=== PATIENT | female | born 1950 | race Caucasian/White ===

== ENCOUNTER 2018-10-28 14:55 | Observation (INO) ==
[2018-10-28] MEDS ORDERED: 0.9 % Sodium Chloride 1,000 ML IVC ONE (14:59)
[2018-10-28] MEDS ORDERED: Ondansetron 4 MG/2 ML VIAL IVP ONE (14:59)
--- NOTE | 2018-10-28 15:01 | Emergency Department Note ---
Disposition Clinical Impression: Abdominal pain, vomiting, and diarrhea Syncope Qualifiers: Syncope type: unspecified Qualified Code(s): R55 - Syncope and collapse Disposition: Admitted As Inpatient Condition: Fair Referrals: Willam Virk MD [Primary Care Provider] - Forms: ED Satisfaction Letter Time of Disposition: 16:03 Nausea/Vomiting/Diarrhea HPI - General Chief complaint: ED Nausea/Vomiting/Diarrhea Stated complaint: vomiting and diarrhea, abd pain Time Seen by Provider: 10/28/18 14:58 Source: patient, EMS Mode of arrival: EMS Limitations: no limitations Nursing Notes Reviewed: Yes Vital Signs Reviewed: Yes - History of Present Illness HPI Narrative: Patient reports onset of chills and about 10 AM followed by frequent watery diarrhea and nausea with vomiting. She states diarrhea is been without blood or mucus has been frequent. She states she has vomited at least 10 times with a bitter bile. Patient's felt dizzy and states she did pass out without injury. She ultimately called the squad and they found her to be somewhat, persistently vomiting, having diarrhea and a blood pressure of 80 systolic. IV was established, fluid bolus initiated and she is been transported in for evaluation. She arrives here alert and appropriate ill appearing. She reports no ill exposures, foodborne illness concerns, recent travel or antibiotics. She states her abdomen feels tight and sore and believes this is from her vomiting and diarrhea. She denies any other localizing abdominal pains. She reports a previous cholecystectomy, appendectomy and an ulcer surgery. She denies any other ongoing abdominal troubles. She states her back feels sore. She has a urinary frequency, dysuria or blood. She denies chest pain, palpitation or shor tness of breath. She denies cough. She denies any lower extremity complaints. EMS reported that her nausea seemed to do a little better after they had an diffuse about 300 mL of normal saline. EKG was performed and transmitted at 2:45 PM. This shows a normal sinus rhythm with a rate of 90, axis of 18, RI interval of 160 and a QT/QTc is 376/428. Patient has some nonspecific lateral T-wave inversion present consistent with possible LVH. This is on my interpretation. Pt Subjective Complaint: nausea, vomiting, diarrhea, abdominal pain Onset (ago): hour(s) (5) Description of emesis: food contents, watery, bilious Number of episodes of emesis: 10 Description of Diarrhea: water Associated Abdominal Pain: Yes ("Sore from vomiting") If pain, Location of pain: diffuse Severity: moderate Quality: cramping, aching Consistency: intermittent Improves with: nothing Worsens with: vomiting Associated symptoms: Reports: fever/chills, loss of appetite, malaise, nausea/vomiting, syncope, weakness. Denies: myalgias, chest pain, cough, diaphoresis, headaches, rash, dysuria, shortness of breath - Related Data Home Medications Medication Instructions Recorded Confirmed amLODIPine [Norvasc] 10 mg PO DAILY 03/22/16 03/22/16 Previous Rx's Medication Instructions Recorded Hydrocodone/Acetaminophen [[place] 0.5 - 1 tab PO Q6H PRN #16 tab 03/22/16 5-325 Tablet] Promethazine/Dextromethorphan 5 ml PO Q6HR PRN #60 ml 05/28/18 [Promethazine-Dm Syrup] Allergies Allergy/AdvReac Type Severity Reaction Status Date / Time No Known Allergies Allergy Verified 10/28/18 14:58 All systems ED: reviewed and negative except as stated. Past Medical History - Past Medical History Attestation: Yes The following information was validated with the patient. Source: patient, nursing notes reviewed Medical history: Reports: hypertension, other Surgical history: Reports: appendectomy, cholecystectomy, other ("Ulcer surgery") Psychiatric history: Reports: anxiety - Social History Smoking Status: Current every day smoker Smokeless Tobacco Status: No Alcohol use: Reports: occasionally Drug use: Reports: none Physical Exam - General Limitations: no limitations General appearance: alert, anxious - Head Head exam: atraumatic, normocephalic, normal inspection - Eye Eye exam: Present: normal appearance, PERRL, EOMI. Absent: scleral icterus, conjunctival injection - ENT ENT exam: normal exam, normal oropharynx, mucous membranes moist - Neck Neck exam: Present: normal inspection, full ROM, trachea midline - Chest Chest inspection: Present: normal inspection, symmetric chest wall rise - Respiratory Respiratory exam: Present: normal lung sounds bilaterally. Absent: respiratory distress, wheezes, prolonged expiratory phase - Cardiovascular Cardiovascular exam: Present: regular rate, normal rhythm, normal heart sounds. Absent: tachycardia - Abdominal Exam Abdominal exam: Present: soft, hyperactive bowel sounds. Absent: distention, guarding, rebound, rigidity, Colbert's sign, mass, hernia Abdominal tenderness: Present: diffuse, mild, moderate - Extremities Exam Extremities exam: Present: normal inspection, full ROM, normal capillary refill. Absent: tenderness, pedal edema - Expanded Lower Extremity Exam Neurovascular/Tendon exam: Present: normal capillary refill. Absent: motor deficit, sensory deficit, tendon deficit Gait: not tested/not observed - Back Exam Back exam: Present: normal inspection, full ROM. Absent: tenderness, CVA tenderness (R), CVA tenderness (L) - Neurological Exam Neurological exam: Present: alert, oriented X3 - Psychiatric Psychiatric exam: Present: normal affect, anxious - Skin Skin exam: Present: warm, dry, intact, pallor Course Course Narrative: 1600: Patient's presentation and testing have been discussed with the patient, family and Dr. Solo. All concerned her in agreement with observation on monitoring for continued hydration and antiemetics. She is feeling improved. She currently has a systolic blood pressure of 99, heart rate of 90. She has gets skin turgor. She has clear respirations and no focal tenderness on all related to her abdomen. Believe her lactic acidosis is secondary to intractable vomiting and diarrhea and not from other septic cause. I discussed any ant ibiotic coverage and Dr. Solo feels comfortable going without. He will assess the patient on the hospital floor and coordinate further care. Verbal orders have been obtained for her observation. Vital Signs Temperature 98.1 F 10/28/18 15:11 Pulse Rate 86 10/28/18 15:11 Respiratory Rate 18 10/28/18 15:11 Blood Pressure 98/65 10/28/18 15:11 O2 Sat by Pulse Oximetry 99 10/28/18 15:11 Temperature 98.1 F 10/28/18 15:11 Pulse Rate 86 10/28/18 15:11 Respiratory Rate 18 10/28/18 15:11 Blood Pressure 98/65 10/28/18 15:11 O2 Sat by Pulse Oximetry 99 10/28/18 15:11 Oxygen Delivery Oxygen Delivery Room Air Nausea/Vomiting/Diarrhea - Differential Diagnosis Likely: food poisoning, gastroenteritis, dehydration - Medical Records Medical records reviewed: Yes I reviewed the patient's medical records. - Lab Data Lab results reviewed: Yes I reviewed the patient's lab results. Result diagrams: 10/28/18 15:09 10/28/18 15:09 Lab Results 10/28/18 10/28/18 10/28/18 Range/Units 15:09 15:09 15:09 WBC 12.6 H (4.3-11.1) K/mcL RBC 4.95 (3.82-4.97) M/mcL Hgb 14.8 (11.5-15.4) g/dL Hct 44.2 (35.3-44.9) % MCV 89.3 (83.0-100.0) fL MCH 29.9 (28.0-33.3) pg MCHC 33.5 (31.6-35.5) g/dL RDW 13.6 (11.5-14.5) % Plt Count 397 (140-400) K/mcL MPV 9.8 (9.4-12.4) fL Immature Gran % 0.6 (0-4) % Seg Neutrophils % 86.8 % Lymphocytes % 8.6 % Monocytes % 3.2 % Eosinophils % 0.1 % Basophils % 0.7 % Neutrophils # 10.9 H (1.6-8.9) K/mcL Lymphocytes # 1.1 (0.6-4.6) K/mcL Monocytes # 0.4 (0.0-1.3) K/mcL Eosinophils # 0.0 (0.0-0.6) K/mcL Basophils # 0.1 (0.0-0.2) K/mcL Sodium 140 (136-145) mEq/L Potassium 3.1 L (3.5-5.1) mEq/L Chloride 102 (98-107) mEq/L Carbon Dioxide 23 (23-29) mEq/L BUN 18 (8-23) mg/dL Creatinine 1.39 H (0.60-1.20) mg/dL Est GFR ( Amer) 46 L (> 60) Est GFR (Non-Af Amer) 38 L (> 60) BUN/Creatinine Ratio 13 (6-26) Glucose 147 H (70-105) mg/dL Calculated Osmolality 295 (280-300) Lactic Acid (0.5-2.2) mmol/L Calcium 9.4 (8.6-10.3) mg/dL Total Bilirubin 0.2 L (0.3-1.0) mg/dL Direct Bilirubin 0.0 (0.0-0.2) mg/dL Indirect Bilirubin 0.2 (0.0-1.2) mg/dL AST 23 (13-39) Units/L ALT 16 (7-52) Units/L Alkaline Phosphatase 97 (34-104) Units/L Troponin I (< 0.04) ng/mL Serum Total Protein 8.1 (6.4-8.9) g/dL Albumin 4.7 (3.5-5.7) g/dL Globulin 3.4 (2.4-3.5) g/dL Albumin/Globulin Ratio 1.4 (1.1-2.2) Amylase 56 (29-103) Units/L Lipase 40 (11-82) Units/L 10/28/18 10/28/18 Range/Units 15:09 15:09 WBC (4.3-11.1) K/mcL RBC (3.82-4.97) M/mcL Hgb (11.5-15.4) g/dL Hct (35.3-44.9) % MCV (83.0-100.0) fL MCH (28.0-33.3) pg MCHC (31.6-35.5) g/dL RDW (11.5-14.5) % Plt Count (140-400) K/mcL MPV (9.4-12.4) fL Immature Gran % (0-4) % Seg Neutrophils % % Lymphocytes % % Monocytes % % Eosinophils % % Basophils % % Neutrophils # (1.6-8.9) K/mcL Lymphocytes # (0.6-4.6) K/mcL Monocytes # (0.0-1.3) K/mcL Eosinophils # (0.0-0.6) K/mcL Basophils # (0.0-0.2) K/mcL Sodium (136-145) mEq/L Potassium (3.5-5.1) mEq/L Chloride (98-107) mEq/L Carbon Dioxide (23-29) mEq/L BUN (8-23) mg/dL Creatinine (0.60-1.20) mg/dL Est GFR ( Amer) (> 60) Est GFR (Non-Af Amer) (> 60) BUN/Creatinine Ratio (6-26) Glucose (70-105) mg/dL Calculated Osmolality (280-300) Lactic Acid 2.8 H (0.5-2.2) mmol/L Calcium (8.6-10.3) mg/dL Total Bilirubin (0.3-1.0) mg/dL Direct Bilirubin (0.0-0.2) mg/dL Indirect Bilirubin (0.0-1.2) mg/dL AST (13-39) Units/L ALT (7-52) Units/L Alkaline Phosphatase (34-104) Units/L Troponin I < 0.03 (< 0.04) ng/mL Serum Total Protein (6.4-8.9) g/dL Albumin (3.5-5.7) g/dL Globulin (2.4-3.5) g/dL Albumin/Globulin Ratio (1.1-2.2) Amylase (29-103) Units/L Lipase (11-82) Units/L - Radiology Data Radiology results reviewed: Yes I reviewed the patient's radiology results. CT is performed of the abdomen and pelvis without IV or oral contrast. This shows the basal lungs be free of infiltrate, effusion or mass. The liver, spleen and pancreas appear normal. Kidneys are without stone or obstruction. Bowel is liquid filled in the small and large bowel. She does have diverticular disease in the sigmoid colon without diverticulitis. I do not see evidence for obstruction, acute inflammatory change or perforation. Abdominal wall appears to have an area of fat-containing left inguinal hernia without evidence for bowel hernia or entrapment. No other acute abnormality is seen. This is on my interpretation. Impressions Abdomen/Pelvis CT 10/28/18 14:59 IMPRESSION: 1. No acute abnormalities seen in the abdomen or pelvis 2. Status post cholecystectomy 3. Colonic diverticulosis without evidence for diverticulitis 4. Mild distention of the cecum which is fluid-filled. This may be related to diarrhea. No focal bowel wall thickening. 5. The appendix is not visualized but no secondary signs of appendicitis 6. No obstructive uropathy 7. Fat containing left inguinal hernia D/ / Keith Lawrence MD / Keith Lawrence MD Interpreting Provider: Keith Lawrence MD - EKG Data EKG attestation: Yes I reviewed and interpreted this EKG. EKG shows normal: sinus rhythm, axis, intervals, QRS complexes, ST-T waves Rate: normal T wave inversions noted in: v4, v5, v6 Interpretation: nonspecific ST-T wave changes, LVH (With lateral strain)
[2018-10-28 15:19] LABS: Basophils # 0.1 K/mcL (0.0-0.2); Basophils % 0.7 %; Eosinophils % 0.1 %; Hematocrit 44.2 % (35.3-44.9); Hemoglobin 14.8 g/dL (11.5-15.4); Immature Granulocytes % 0.6 % (0-4); Lymphocytes # 1.1 K/mcL (0.6-4.6); Lymphocytes % 8.6 %; Mean Corpuscular HGB Conc 33.5 g/dL (31.6-35.5); Mean Corpuscular Hemoglobin 29.9 pg (28.0-33.3); Mean Corpuscular Volume 89.3 fL (83.0-100.0); Mean Platelet Volume 9.8 fL (9.4-12.4); Monocytes # 0.4 K/mcL (0.0-1.3); Monocytes % 3.2 %; Neutrophils # 10.9 K/mcL (1.6-8.9); Platelet Count 397 K/mcL (140-400); Red Blood Count 4.95 M/mcL (3.82-4.97); Red Cell Distribution Width 13.6 % (11.5-14.5); Segmented Neutrophils % 86.8 %; White Blood Count 12.6 K/mcL (4.3-11.1)
[2018-10-28 15:39] LABS: Calcium 9.4 mg/dL (8.6-10.3); Potassium 3.1 mEq/L (3.5-5.1)
[2018-10-28 15:40] LABS: Albumin 4.7 g/dL (3.5-5.7); Albumin/Globulin Ratio 1.4 (1.1-2.2); Bilirubin,Indirect 0.2 mg/dL (0.0-1.2); Bilirubin,Total 0.2 mg/dL (0.3-1.0); Globulin 3.4 g/dL (2.4-3.5); Total Protein 8.1 g/dL (6.4-8.9)
[2018-10-28] MEDS ORDERED: Ondansetron 4 MG/2 ML VIAL IVP PRN (16:05)
[2018-10-28] MEDS ORDERED: Mag Hydrox/Al Hydrox/Simeth 30 ML UDC PO PRN (16:05)
[2018-10-28] MEDS ORDERED: Naloxone 0.4 MG/ML INJ IVP PRN (16:05)
[2018-10-28] MEDS ORDERED: 0.9 % Sodium Chloride 1,000 ML ONE (16:44)
[2018-10-28] MEDS: 0.9 % Sodium Chloride 1,000 ML IVC SCH (17:40)
[2018-10-28 20:16] LABS: Bilirubin,Urine Negative (Negative); Blood,Urine Trace-intact (Negative); Clarity,Urine Clear (Clear); Color,Urine Yellow (Yellow); Glucose,Urine (UA) Normal (Normal); Ketones,Urine Negative (Negative); Leukocyte Esterase,Urine Negative (Negative); Nitrite,Urine Negative (Negative); PH,Urine 5.5 pH Units (5.0-8.0); Protein,Urine Negative (Neg-Trace); Urobilinogen,Urine Normal (Normal)
[2018-10-28 20:30] LABS: Granular Casts,Urine Few per lpf (None Seen); Hyaline Casts,Urine Few per lpf (None-Few); Squamous Epithelial Cell,Urine Few per lpf (None-Few)
[2018-10-28 20:31] LABS: Bacteria,Urine Moderate per hpf (None-Few); Mucus,Urine Moderate (Few); RBC,Urine 0-3 per hpf (0-3); WBC,Urine 0-3 per hpf (0-3)
[2018-10-28] MEDS: Acetaminophen 325 MG TABLET PO PRN (20:49)
[2018-10-28] MEDS ORDERED: clonazePAM 1 MG TABLET PO PRN (20:57)
[2018-10-28] MEDS: Nicotine 14 MG PATCH.TD24 TD SCH (22:00)
[2018-10-28] MEDS: clonazePAM 0.5 MG TABLET PO PRN (22:01)
[2018-10-29] MEDS: 0.9 % Sodium Chloride 1,000 ML IVC SCH ×3 (02:46→11:10)
[2018-10-29] MEDS: Acetaminophen 325 MG TABLET PO PRN ×2 (02:49→08:32)
[2018-10-29 07:44] LABS: BUN/Creatinine Ratio 23 (6-26); Blood Urea Nitrogen 14 mg/dL (8-23); Calcium 7.4 mg/dL (8.6-10.3); Carbon Dioxide 22 mEq/L (23-29); Chloride 113 mEq/L (98-107); Glucose 82 mg/dL (70-105); Osmolality,Calculated 292 (280-300); Potassium 3.2 mEq/L (3.5-5.1); Sodium 141 mEq/L (136-145); eGFR For African Americans > 60 (> 60); eGFR For Non-African Americans > 60 (> 60)
[2018-10-29] MEDS: clonazePAM 0.5 MG TABLET PO PRN ×2 (08:32→17:33)
[2018-10-29] MEDS ORDERED: amLODIPine 5 MG TABLET PO SCH (09:00)
[2018-10-29] MEDS ORDERED: Ondansetron 4 MG/2 ML VIAL IVP PRN (11:48)
[2018-10-29] MEDS: Acetaminophen/Butalbital/CaffeineTABLET PO PRN ×2 (11:50→17:33)
--- NOTE | 2018-10-29 11:54 | Internal Med History&Physical ---
Date of Encounter: 10/29/18 Time of Encounter: 11:10 Assessment and Plan (1) Acute gastroenteritis Current visit: Yes Status: Acute IV fluids and anti-emetics will be ordered. (2) Hypokalemia Current visit: Yes Status: Acute Likely secondary to vomiting and diarrhea. Supplemental potassium will be given. (3) Hypertension Current visit: Yes Status: Chronic Continue amlodipine. Qualifiers: Hypertension type: essential hypertension Qualified Code(s): I10 - Essential (primary) hypertension (4) Low vitamin D level Current visit: Yes Status: Acute Vitamin D level will be checked. (5) Depression Current visit: Yes Status: Chronic Continue clonazepam. Qualifiers: Depression Type: unspecified Qualified Code(s): F32.9 - Major depressive disorder, single episode, unspecified Internal Medicine - H&P: HPI Chief complaint: Vomiting and diarrhea Admitted From: Emergency Dept Plans for Post Hospital Care: Home History of present illness: Ms. Soler is a 67 year old female who came to emergency room stating she had onset of nausea vomiting and diarrhea approximately 10 AM the day of admission with multiple episodes of nonbloody vomiting and diarrhea. There was no significant abdominal pain, fevers, or chills. She denies any family members or contacts with similar symptoms. She became progressively weaker so came to emergency room for evaluation. She was admitted to [facility] floor for ongoing care needs. She states she has not vomited in over 12 hours but reports diarrhea still present. She denies previous similar episodes. GI history is pertinent for cholecystectomy in the 1980s. She had bleeding peptic ulcer disease with p artial gastrectomy and duodenal resection in 2013. Past Med Surg Social Fam HX - Past Medical History Medical history: hypertension, other Additional medical history: hx perforated ulcer Psychiatric history: anxiety, depression - Past Surgical History Surgical History: appendectomy, cholecystectomy, other ("Ulcer surgery") Additional surgical history: abd sx for perforated stomach ulcer - Social History Smoking Status: Current every day smoker Smokeless Tobacco Status: No Alcohol use: none, occasionally Drug use: none Internal Medicine - H&P: Meds amLODIPine [Norvasc] 10 mg PO DAILY 03/22/16 [History] Klonopin 1 mg PO TID 10/28/18 [History] Allergy/AdvReac Type Severity Reaction Status Date / Time shellfish derived Allergy Vomiting Verified 10/28/18 17:10 All Systems PM: A 10-system review of systems was performed and is negative for pertinent findings except as documented above in the HPI. Review of systems: Gen.: She states her weight has been stable for several months Cardiovascular: She has history of hypertension but denies CO heart failure angina DVT or pulmonary embolus Respiratory: She smoked intermittently since age 32 up to one pack per day. She reports PFTs approximately 2013 did not show significant lung disease. She does not use home oxygen. GI: As per history of present illness : She denies hematuria dysuria or kidney stones Neurologic: She has history of migraine headaches. She denies large distribution strokes or seizures. Endocrine: She denies diabetes thyroid disease or hyperlipidemia Hematology/oncology: She denies blood disorders cancers or anemia Psychiatric: She has depression or anxiety or other mental health issues. [place] skeletal: She denies arthritis gout or other bone joint or muscle disorders. She had vitamin D level of 7 mg/mL 06/13/2018. - Constitutional Vitals: Temp Pulse Resp BP Pulse Ox 97.6 F 68 17 130/74 95 10/29/18 10:58 10/29/18 10:58 10/29/18 10:58 10/29/18 10:58 10/29/18 10:58 Exam: Gen.: She is a well-developed well-nourished female resting comfortably in bed who appears in no severe distress HEENT: Head is atraumatic and normocephalic. Eyes: EOMI. There is no scleral icterus. Mouth: Mucosa is moist. Neck: Supple and nontender. There is no thyromegaly or adenopathy noted. Heart: Regular without murmurs gallops or ectopics Lungs: No wheezes or crackles are heard. Abdomen: Soft and nontender. Bowel sounds are present. No masses or guarding are noted. Extremities: She is wearing ANGÉLICA hose bilaterally which I did not remove. There is no pitting edema palpated through the ANGÉLICA hose. She has minimal DJD changes of her hands. Neurologic: Mental status: She is talkative and a good historian. Cranial nerves: Smile is symmetric. Forehead wrinkles bilaterally. Tongue protrudes midline. EOMI. Motor: There is no pronator drift. Cerebellar: Finger to nose is intact bilaterally. Skin: Warm and dry Internal Med - H&P Results - Labs CBC & Chem 7: 10/28/18 15:09 10/29/18 06:10 Labs: Short CBC 10/28/18 Range/Units 15:09 WBC 12.6 H (4.3-11.1) K/mcL Hgb 14.8 (11.5-15.4) g/dL Hct 44.2 (35.3-44.9) % Plt Count 397 (140-400) K/mcL Neutrophils # 10.9 H (1.6-8.9) K/mcL BMP 10/28/18 10/29/18 15:09 06:10 Sodium 140 141 Potassium 3.1 L 3.2 L Chloride 102 113 H Carbon Dioxide 23 22 L BUN 18 14 Creatinine 1.39 H 0.61 Glucose 147 H 82 Calcium 9.4 7.4 L Cardiac Enzymes 10/28/18 Range/Units 15:09 Troponin I < 0.03 (< 0.04) ng/mL Liver Function 10/28/18 Range/Units 15:09 Total Bilirubin 0.2 L (0.3-1.0) mg/dL Direct Bilirubin 0.0 (0.0-0.2) mg/dL AST 23 (13-39) Units/L ALT 16 (7-52) Units/L Alkaline Phosphatase 97 (34-104) Units/L Albumin 4.7 (3.5-5.7) g/dL Urine 10/28/18 Range/Units 20:00 Urine Color Yellow (Yellow) Urine Clarity Clear (Clear) Urine pH 5.5 (5.0-8.0) pH Units Ur Specific [place] 1.020 (1.010-1.025) Urine Protein Negative (Neg-Trace) mg/dL Urine Glucose (UA) Normal (Normal) mg/dL - Impressions ITS Impressions Abdomen/Pelvis CT 10/28/18 14:59 IMPRESSION: 1. No acute abnormalities seen in the abdomen or pelvis 2. Status post cholecystectomy 3. Colonic diverticulosis without evidence for diverticulitis 4. Mild distention of the cecum which is fluid-filled. This may be related to diarrhea. No focal bowel wall thickening. 5. The appendix is not visualized but no secondary signs of appendicitis 6. No obstructive uropathy 7. Fat containing left inguinal hernia D/ / Keith Lawrence MD / Keith Lawrence MD Interpreting Provider: Keith Lawrence MD
[2018-10-29] MEDS: *HR* Enoxaparin 40 MG/0.4 ML SYRINGE SQ SCH (12:37)
[2018-10-29] MEDS: 0.45 % Sodium Chloride w/KCl 20 MEQ/1,000 ML MLS IVC SCH (12:39)
--- NOTE | 2018-10-29 13:38 | Electrocardiograph Report ---
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
[2018-10-29 19:29] LABS: Adenovirus F 40/41 PCR Not detected (Not detect); Astrovirus PCR Not detected (Not detect); C.difficile Toxin A/B Gene PCR Not detected (Not detect); Campylobacter by PCR Not detected (Not detect); Cryptosporidium by PCR Not detected (Not detect); Cyclospora cayetanensis PCR Not detected (Not detect); E. coli O157 by PCR Not detected (Not detect); Entamoeba histolytica PCR Not detected (Not detect); Enteroaggregative E.coli(EAEC) Not detected (Not detect); Enteropathogenic E.coli(EPEC) Not detected (Not detect); Enterotoxigenic E.coli (ETEC) Not detected (Not detect); Giardia lamblia PCR Not detected (Not detect); Norovirus GI/GII PCR DETECTED (Not detect); Plesiomonas shigelloides PCR Not detected (Not detect); Rotavirus A PCR Not detected (Not detect); Salmonella PCR Not detected (Not detect); Sapovirus PCR Not detected (Not detect); Shig/EnteroinvasiveE coli EIEC Not detected (Not detect); Shigalike tox-prod E coli STEC Not detected (Not detect); Vibrio PCR Not detected (Not detect); Vibrio cholerae PCR Not detected (Not detect); Yersinia enterocolitica PCR Not detected (Not detect)
[2018-10-29] MEDS: Nicotine 14 MG PATCH.TD24 TD SCH (20:32)
[2018-10-30] MEDS: Acetaminophen/Butalbital/CaffeineTABLET PO PRN ×2 (01:07→08:57)
[2018-10-30] MEDS: 0.45 % Sodium Chloride w/KCl 20 MEQ/1,000 ML MLS IVC SCH (02:52)
[2018-10-30] MEDS: clonazePAM 0.5 MG TABLET PO PRN (03:53)
[2018-10-30 06:13] LABS: Basophils % 0.7 %; Hematocrit 33.2 % (35.3-44.9); Hemoglobin 11.2 g/dL (11.5-15.4); Immature Granulocytes % 0.2 % (0-4); Lymphocytes # 1.2 K/mcL (0.6-4.6); Lymphocytes % 30.7 %; Mean Corpuscular HGB Conc 33.7 g/dL (31.6-35.5); Mean Corpuscular Hemoglobin 29.7 pg (28.0-33.3); Mean Corpuscular Volume 88.1 fL (83.0-100.0); Mean Platelet Volume 9.6 fL (9.4-12.4); Monocytes # 0.4 K/mcL (0.0-1.3); Monocytes % 10.6 %; Neutrophils # 2.3 K/mcL (1.6-8.9); Platelet Count 237 K/mcL (140-400); Red Blood Count 3.77 M/mcL (3.82-4.97); Red Cell Distribution Width 13.8 % (11.5-14.5); Segmented Neutrophils % 57.8 %
[2018-10-30] MEDS: *HR* Enoxaparin 40 MG/0.4 ML SYRINGE SQ SCH (06:22)
[2018-10-30 06:36] LABS: Alanine Aminotransferase 19 Units/L (7-52); Albumin 3.5 g/dL (3.5-5.7); Albumin/Globulin Ratio 1.3 (1.1-2.2); Alkaline Phosphatase 69 Units/L (34-104); Aspartate Amino Transferase 26 Units/L (13-39); BUN/Creatinine Ratio 9 (6-26); Blood Urea Nitrogen 5 mg/dL (8-23); Calcium 8.6 mg/dL (8.6-10.3); Carbon Dioxide 26 mEq/L (23-29); Chloride 108 mEq/L (98-107); Globulin 2.7 g/dL (2.4-3.5); Glucose 91 mg/dL (70-105); Osmolality,Calculated 287 (280-300); Potassium 3.6 mEq/L (3.5-5.1); Sodium 140 mEq/L (136-145); Total Protein 6.2 g/dL (6.4-8.9); eGFR For African Americans > 60 (> 60); eGFR For Non-African Americans > 60 (> 60)
[2018-10-30 06:40] LABS: Bilirubin,Total 0.2 mg/dL (0.3-1.0)
[2018-10-30 07:18] VITALS: BP 120/73
--- NOTE | 2018-10-30 10:26 | Discharge Summary ---
Orders not resulted at time of discharge: Pending orders 10/28/18 15:12 Culture,Blood [BC] Stat 10/28/18 20:00 Culture,Urine [RM] Stat Date of Encounter: 10/30/18 Time of Encounter: 10:15 - Discharge Diagnosis (1) Acute gastroenteritis Priority: Primary Status: Acute (2) Hypokalemia Priority: Secondary Status: Resolved (3) Hypertension Priority: Secondary Status: Chronic Qualifiers: Hypertension type: essential hypertension Qualified Code(s): I10 - Essential (primary) hypertension (4) Low vitamin D level Priority: Secondary Status: Acute (5) Depression Priority: Secondary Status: Chronic Qualifiers: Depression Type: unspecified Qualified Code(s): F32.9 - Major depressive disorder, single episode, unspecified Hospital course: Ms. Soler is a 67 year old female who came to emergency room stating she had onset of nausea vomiting and diarrhea approximately 10 AM the day of admission with multiple episodes of nonbloody vomiting and diarrhea. There was no significant abdominal pain, fevers, or chills. She denies any family members or contacts with similar symptoms. She became progressively weaker so came to emergency room for evaluation. She was admitted to [facility] floor for ongoing care needs. Initial orders were written by the emergency room physician. I saw her on October 29 and performed a history and physical. She was given IV fluids. Antiemetics were given as needed. Stool testing showed presence of norovirus. Her symptoms had essentially resolved by the time I saw her October 30. She had adequate oral intake and denied ongoing diarrhea. She felt stable for discharge home which I felt was reasonable. Hypokalemia normalized with supplemental potassium. She will not continue supplemental potassium at discharge since symptoms have resolved. She will follow with her PCP Dr. Willam Virk within 1 week. - Time Spent with Patient Total time spent providing and/or coordinating discharge services: - Discharge Medications Prescriptions: New Loperamide [Imodium] 2 mg PO Q4HR PRN capsule PRN Reason: Diarrhea Continued amLODIPine [Norvasc] 10 mg PO DAILY Klonopin 1 mg PO TID Home Medications: amLODIPine [Norvasc] 10 mg PO DAILY 03/22/ [History] Klonopin 1 mg PO TID 10/28/18 [History] Loperamide [Imodium] 2 mg PO Q4HR PRN capsule 10/30/18 [Rx] Allergies/Adverse Reactions: Allergy/AdvReac Type Severity Reaction Status Date / Time shellfish derived Allergy Vomiting Verified 10/28/18 17:10 Date of admission: 10/28/18 16:12 Primary care physician: Willam Virk MD - Constitutional Vitals: Temp Pulse Resp BP Pulse Ox 98.3 F 79 17 120/73 96 10/30/18 07:13 10/30/18 07:13 10/30/18 07:13 10/30/18 07:13 10/30/18 07:13 - Patient Status Disposition: Home, Self-Care Condition: Fair - Discharge Instructions Follow Up With: Willam Virk MD [Primary Care Provider] - 1 week - Diet and Activity Activity: resume usual activities as tolerated Diet: advance to your usual diet
[2018-10-30 19:28] LABS: Acinetobacter baumannii by PCR Not Detected (Not Detect); Candida albicans by PCR Not Detected (Not Detect); Candida glabrata by PCR Not Detected (Not Detect); Candida krusei by PCR Not Detected (Not Detect); Candida parapsilosis by PCR Not Detected (Not Detect); Candida tropicalis by PCR Not Detected (Not Detect); Enterobacter cloacae Cmplx PCR Not Detected (Not Detect); Enterobacteriaceae by PCR Not Detected (Not Detect); Enterococcus by PCR Not Detected (Not Detect); Escherichia coli by PCR Not Detected (Not Detect); Klebsiella oxytoca by PCR Not Detected (Not Detect); Klebsiella pneumoniae by PCR Not Detected (Not Detect); Proteus by PCR Not Detected (Not Detect); Pseudomonas aeruginosa by PCR Not Detected (Not Detect); Serratia marcescens by PCR Not Detected (Not Detect); Staphylococcus aureus by PCR Not Detected (Not Detect); Staphylococcus by PCR Not Detected (Not Detect); Streptococcus agalactiae(B)PCR Not Detected (Not Detect); Streptococcus by PCR Not Detected (Not Detect); Streptococcus pneumoniae PCR Not Detected (Not Detect); Streptococcus pyogenes (A) PCR Not Detected (Not Detect); blaKPC Carbapenem-Resist Gene Not Detected (Not Detect); mecA Methicillin-Resist Gene Not Detected (Not Detect); vanA/B Vancomycin-Resist Genes Not Detected (Not Detect)
== END 2018-10-30 11:58 | disposition home or self-care (01) ==
LOC: EMEROOPIK 14:55 → INPPIK 14:55
PROVIDERS: ADMIT Internal Medicine; ATTEND Internal Medicine